=== PATIENT | female | born 1940 | race Caucasian/White ===

== ENCOUNTER 2019-08-10 22:52 | Emergency (ER) | payer MEDICARE, OTHER ==
[~2019-08-10] VITALS: Ht 167.6 cm; Wt 63.5 kg
--- NOTE | 2019-08-10 22:52 | NUR ---
[facility] C/O SHAKINESS, PT TO BED 2, PT AWAKE, ALERT, -SOB, NAD NOTED, VSS, PENDING MD RENNER
[2019-08-10] MEDS ORDERED: IV NS 0.9% 500 ML BAG IV ONE (23:30)
[2019-08-10 23:40] LABS: BASOPHILS % (AUTO) 0.4 % (0.0-2.0); HEMATOCRIT 44 % (33-45); HEMOGLOBIN 14.8 g/dL (11.5-14.8); LYMPHOCYTES # (AUTO) 0.5 /CMM (0.8-4.8); LYMPHOCYTES % (AUTO) 6.2 % (20.0-44.0); MEAN CORPUSCULAR HGB CONC 33 g/dl (31.0-36.0); MEAN CORPUSCULAR VOLUME 89 fL (82-100); MONOCYTES # (AUTO) 0.2 /CMM (0.1-1.30); MONOCYTES % (AUTO) 2.6 % (2.0-12.0); NEUTROPHILS # (AUTO) 7.5 /CMM (1.8-8.9); NEUTROPHILS % (AUTO) 89.8 % (43.0-81.0); PLATELET COUNT (AUTO) 156 /CMM (150-450); RED BLOOD CELL COUNT(AUTO) 4.96 MIL/uL (4.0-5.2); WHITE BLOOD COUNT (AUTO) 8.4 K/uL (4.3-11.0)
[2019-08-10 23:55] LABS: CALCIUM, SERUM 9.1 mg/dL (8.5-10.1); CARBON DIOXIDE 29 mmol/L (21-32); CHLORIDE 105 mmol/L (98-107); GLUCOSE 131 mg/dL (74-106); POTASSIUM 4.2 mmol/L (3.5-5.1); SODIUM SERUM 141 mmol/L (136-145); UREA NITROGEN, BLOOD 14 mg/dL (7-18)
[2019-08-11] LABS: ACETAMINOPHEN 0 ug/ml (10-30); ALANINE AMINOTRANSFERASE 16 U/L (12-78); ALBUMIN 3.3 g/dL (3.4-5.0); ALKALINE PHOSPHATASE 96 U/L (46-116); ASPARTATE AMINOTRANSFERASE 22 U/L (15-37); BILIRUBIN,DIRECT 0.1 mg/dL (0.0-0.2); BILIRUBIN,TOTAL 0.3 mg/dL (0.2-1.0); SALICYLATE 0.4 mg/dL (2.8-20.0); TOTAL PROTEIN, SERUM 7.3 g/dL (6.4-8.2)
--- NOTE | 2019-08-11 01:00 | NUR ---
Patient is resting comfortably in bed with eyes closed. Easily aroused. VSS
--- NOTE | 2019-08-11 01:54 | NUR ---
[facility] ETA 0330. TRIP# [id number]
--- NOTE | 2019-08-11 03:12 | NUR ---
PT IN BED SLEEPING. NO DISTRESS NOTED.
--- NOTE | 2019-08-11 04:05 | NUR ---
MIKAYLA, CAREGIVER AT THE FACILITY WAS NOTIFIED THAT PT IS COMING BACK
--- NOTE | 2019-08-11 04:07 | NUR ---
[facility] # 114 AT BEDSIDE FOR TRANSPORT. REPORT GIVEN . PT IS STABLE FOR TRANSPORT. PT IS IN STABLE CONDITION
[2019-08-11 04:18] VITALS: BP 111/73
--- NOTE | 2019-08-11 04:18 | NUR ---
PT LEFT ON GURNEY WITH 2 AMBULANCE STAFF. NAD NOTED. PT IS IN STABLE CONDITION
== END 2019-08-11 04:15 | disposition home or self-care (01) ==
LOC: ER 22:53
DX: R25.1 Tremor, unspecified (principal); F03.90 Unspecified dementia, unspecified severity, without behavioral disturbance, psychotic disturbance, mood disturbance, and anxiety; R94.31 Abnormal electrocardiogram [ECG] [EKG]
CPT/HCPCS: 36415; 70450; 71045; 80048; 80076; 80329; 83605; 84484; 85025; 85730; 87040 ×2; 93005; 99284; G0480; J7040